=== PATIENT | female | born 1970 | race Caucasian/White ===

== ENCOUNTER 2020-10-24 01:00 | Day surgery (SDC) | payer BC, OTHER, SELFPAY ==
[2020-10-23 13:39] VITALS: BMI 36.6
[2020-10-24] VITALS (9 sets, daily range): BP systolic 110–131; BP diastolic 74–84; PULSE 77–91; RESP 12–16; TEMP 36.1–37; O2SAT 94–100
--- NOTE | ~2020-10-24 | XR_ITS ---
EXAMINATION: XR fluoroscopy no charge EXAM DATE: 10/24/2020 10:43 INDICATION: Left-sided stone extraction. TECHNIQUE: Fluoroscopy used during XR fluoroscopy no charge performed by Dr. El Levin MD. The DAP for this procedure was 833 radcm2 Cine run(s) available for review. FINDINGS: There are 2 sample case porter images available, difficult to identify the ureteral stone on these 2 im ages. Correlate with procedure note. IMPRESSION: Fluoroscopy used during left stone extraction. Reviewed, dictated and finalized at location A. [employer]
--- NOTE | 2020-10-24 09:19 | ECG_ITS ---
Measurements Intervals [place] Rate: 86 P: 62 MA: 161 QRS: 34 QRSD: 83 T: 50 QT: 365 QTc: 438 Interpretive Statements SINUS RHYTHM NORMAL ECG Electronically Signed On 10-24-2020 10:04:52 [employer] by Dariel Smith D.O.
--- NOTE | 2020-10-24 09:21 | WPDANESEPPF ---
Anes - Initial Pre Proc Eval Procedure: Operation Date: 10/24/20 11:30 Proposed Procedures p Cystoscopy, Left Ureteroscopy,Possible Left Retrograde Pyelogram, Left Stone Extraction, Possible Left Stent Placement, - El Levin MD s Possible Holmium Laser Procedure - El Levin MD Date/Time: 10/24/20 09:21 Surgeon: El Levin MD Pre Op Diagnosis: Left Ureteral Stones Patient Data Age: 50 Gender: F Height: 1.65 m Weight: 103.3 kg Allergies Allergy/AdvReac Type Severity Reaction Status Date / Time latex Allergy Severe Anaphylaxis Verified 10/24/20 09:10 morphine Allergy Severe Anaphylaxis Verified 10/24/20 09:10 hydromorphone [From Dilaudid] AdvReac Mild Itching Verified 10/24/20 09:10 metformin AdvReac Mild Diarrhea Verified 10/24/20 09:10 mirabegron AdvReac Mild Rash Verified 10/24/20 09:10 nabumetone AdvReac Mild Swelling Verified 10/24/20 09:10 naproxen [From Naprosyn] AdvReac Mild Itching Verified 10/24/20 09:10 sertraline [From Zoloft] AdvReac Mild Rash Verified 10/24/20 09:10 venlafaxine AdvReac Mild Anaphylaxis Verified 10/24/20 09:10 Home Medications Medication Instructions Recorded Confirmed Type atorvastatin 80 mg HS 10/23/20 10/24/20 History cyclobenzaprine 10 mg PRN PRN 10/23/20 10/24/20 History gabapentin 300 mg PO BID 10/23/20 10/24/20 History glimepiride 4 mg BID 10/23/20 10/24/20 History hydrocodone-acetaminophen 1 tablet PRN PRN 10/23/20 10/24/20 History ketorolac 10 mg PRN PRN 10/23/20 10/24/20 History liraglutide [Victoza 2-Abilio] 18 mg SUBCUT DAILY 10/23/20 10/24/20 History lisinopril 5 mg PO DAILY 10/23/20 10/24/20 History omeprazole 20 mg QAM 10/23/20 10/24/20 History ondansetron HCl 4 mg PRN PRN 10/23/20 10/24/20 History tamsulosin 0.4 mg PO HS 10/23/20 10/24/20 History Patient hx anesthesia problems: none Family hx anesthesia problems: none PMFSH Past Medical History Medical History (Updated 10/24/20 @ 09:35 by Dominick Thomas DO) Chronic, continuous use of opioids norco 10/325 x 3/day Diabetes type 2, controlled Fibromyalgia Hyperlipidemia Hypertension Surgical History Surgical History (Updated 10/24/20 @ 09:23 by Dominick Thomas DO) History of History of cholecystectomy History of hysterectomy History of left knee replacement Social History Social History Smoking packs per day: 1 Smoking cigarettes per day: 20.0 Years smoked: 35 Smoking pack-years: 35.00 Smoking status: Current every day smoker Tobacco type: cigarettes Second hand tobacco smoke exposure: Yes Alcohol intake: never Substance use: never Substance use type: does not use Living arrangements: with family Spiritual care concerns: No Anes - Eval Final PreProcedure Day of Procedure 10/24/20 09:21 Patient weight: obese Heart: regular rate and rhythm Lungs: clear to auscultation and normal air movement Airway: Mallampati scale class II Neurological: alert and oriented Last oral intake: >/= 8 hours ASA classification: III Emergent: no Anesthetic plan: proceed Anesthesia type and monitoring: general LMA and standard monitoring Informed Consent: The patient's anesthetic plan and its attendant risks and benefits were discussed with the patient/family/POA. Questions were solicited and answers provided to the satisfaction of the patient/family/POA.
[2020-10-24 09:37] LABS: Glucose Point of Care 320 (65-105)
[2020-10-24] MEDS: LACTATED RINGERS 1,000 ML 30 ML IV CONT ×2 (09:50→11:12)
[2020-10-24] MEDS: FAMOTIDINE 20 MG/2 ML VIAL IV PUSH (10:02)
[2020-10-24] MEDS: INSULIN HUMAN REGULAR (*BKC) 100 UNITS/ML IV PUSH (10:02)
--- NOTE | 2020-10-24 10:02 | WPDHPUPDATE1 ---
History and Physical Update Update Date/Time: 10/24/20 10:02 History and Physical has been reviewed, including an updated exam of the patient. There are NO changes in the patient's condition. Risks, benefits, and alternatives have been discussed and questions answered. Patient agrees to proceed with procedure.
[2020-10-24] MEDS: SCOPOLAMINE 1.5 MG PATCH TRANSDERM (10:03)
[2020-10-24] MEDS: ceFAZolin 2 GM/D5W 50 ML 2 GM/50 ML BAG IVPB (10:07)
[2020-10-24 10:08] LABS: Anion Gap 9 mmol/L (8-16); Blood Urea Nitrogen 18 mg/dL (7-17); Calcium 9.7 mg/dL (8.4-10.2); Carbon Dioxide 27 mmol/L (22-30); Chloride 100 mmol/L (98-107); Estimated CRCL calculation 134 ml/min; Estimated Glomerular Filt Rate > 60; Glucose 319 mg/dL (65-105); Potassium 4.7 mmol/L (3.4-5.0); Sodium 136 mmol/L (137-145)
[2020-10-24] MEDS: LIDOCAINE HCL 2% GEL UROJET 10 ML PKG MUCOUS MEM (10:13)
--- NOTE | 2020-10-24 10:43 | PM.PROC ---
Procedure Note - Detailed Date of procedure: 10/24/20 Pre-op diagnosis: Left Ureteral Stones Post-op diagnosis: same Procedure performed: Cystoscopy, left ureteroscopy with stone extraction Description of procedure: Patient is brought to the operative suite where she was prepped and draped in routine sterile fashion while in a dorsal lithotomy position. Cystoscopy was undertaken with a 19 F rigid cystoscope. We opted not to perform a retrograde pyelogram because of the possible latex rubber day on contrast bilateral and the patient's allergy to latex. 0.035 in glidewire was advanced left renal pelvis under fluoroscopy. Distal ureters dilated with an 8 F dilator. Ureteroscopy was undertaken 1st with a semi rigid ureteral scope. The mid ureteral stone was irrigated back into the renal pelvis. I exchanged the semi-rigid scope for a 7.5 F flexible ureteral scope be the largest of spoke multiple kidney stones was grasped and extracted. In the course of its removed from the bladder the stone was squeezed between the basket wires in could not be found thereafter. It had been extracted from her bladder however. During the course of ureteroscopy several smaller stones were also irrigated from the kidney. She has no significant residual stone pieces remaining in the left kidney. Description wires were removed and the patient was taken to recovery room in good condition. Anesthesia: GLMA Surgeon: El Levin MD Estimated blood loss (mL): 0 Drains: No Packing: No Pathology: none sent Complications: No immediate complications Condition: stable Disposition: PACU
[2020-10-24 10:50] LABS: Glucose Point of Care 208 (65-105)
[2020-10-24] MEDS: oxyCODONE HCL (*CRX) 5 MG TAB IR PO (12:33)
== END 2020-10-24 13:25 | disposition home or self-care (01) ==
PROVIDERS: Anesthesiology; PCP Nurse Practitioner Psychiatric/Mental Health; Visit Provider Urology
PROC: (CPT 52352; principal; 2020-10-24 11:30)
DX: N20.1 Calculus of ureter (principal); E11.9 Type 2 diabetes mellitus without complications; M79.7 Fibromyalgia; E78.5 Hyperlipidemia, unspecified; I10 Essential (primary) hypertension; F17.210 Nicotine dependence, cigarettes, uncomplicated; E66.9 Obesity, unspecified; Z68.37 Body mass index [BMI] 37.0-37.9, adult
CPT/HCPCS: 52352; 36415; 80048; 93005; A9270; C1769; J0690; J1100; J1200; J1815; J2001; J2250; J2405; J2704; J3010; J7120

== ENCOUNTER 2022-10-19 17:09 | Emergency (ER) | payer OTHER, SELFPAY ==
--- NOTE | 2022-10-19 17:22 | ED.URI ---
HPI - URI/Sore Throat General Chief Complaint: Upper Respiratory Infection Stated Complaint: sorethroat Time Seen by Provider: 10/19/22 17:22 Source: patient Mode of arrival: ambulatory Limitations: no limitations History of Present Illness HPI Narrative: Tawanna is a 52-year-old female patient presenting to the clinic today with complaints of a sore throat, cough, and congestion times 3-4 days. She reports no fever or chills. Her grand baby has tested positive for RSV. MD elicited complaint: sore throat and nasal congestion Related Data Home Medications Medication Instructions Recorded Confirmed atorvastatin 40 mg tablet 80 mg HS 10/23/20 10/19/22 cyclobenzaprine 10 mg tablet 10 mg PRN PRN Pain 10/23/20 10/19/22 gabapentin 300 mg tablet 300 mg PO TID 10/23/20 10/19/22 glimepiride 4 mg tablet 4 mg BID 10/23/20 10/19/22 hydrocodone 5 mg-acetaminophen 325 1 tablet PRN PRN Pain 10/23/20 10/19/22 mg tablet liraglutide 0.6 mg/0.1 mL (18 mg/3 18 mg subcut DAILY 10/23/20 10/19/22 mL) subcutaneous pen injector (Q-Senseiza 2-Abilio) lisinopril 5 mg tablet 5 mg PO DAILY 10/23/20 10/19/22 omeprazole 20 mg capsule,delayed 20 mg QAM 10/23/20 10/19/22 release ondansetron HCl 4 mg tablet 4 mg PRN PRN Nausea 10/23/20 10/19/22 tamsulosin 0.4 mg capsule 0.4 mg PO HS 10/23/20 10/19/22 empagliflozin 25 mg tablet 25 mg DAILY 10/19/22 10/19/22 (Jardiance) metformin 500 mg tablet,extended 500 mg PO BID 10/19/22 10/19/22 release 24 hr Allergies Allergy/AdvReac Type Severity Reaction Status Date / Time latex Allergy Severe Anaphylaxis Verified 10/19/22 17:41 morphine Allergy Severe Anaphylaxis Verified 10/19/22 17:41 venlafaxine Allergy Severe Anaphylaxis Verified 10/19/22 17:41 hydromorphone [From Dilaudid] AdvReac Mild Itching Verified 10/19/22 17:41 metformin AdvReac Mild Diarrhea Verified 10/19/22 17:41 mirabegron AdvReac Mild Rash Verified 10/19/22 17:41 nabumetone AdvReac Mild Swelling Verified 10/19/22 17:41 naproxen [From Naprosyn] AdvReac Mild Itching Verified 10/19/22 17:41 sertraline [From Zoloft] AdvReac Mild Rash Verified 10/19/22 17:41 Review of Systems Review of Systems: Pertinent positives per HPI. Patient denies any fever, chills, rash, headache, visual changes, dizziness, shortness of breath, chest pain, palpitations, nausea, vomiting, diarrhea, constipation, abdominal pain, or any urinary issues. [facility] Past Medical History Medical History Chronic, continuous use of opioids norco 10/325 x 3/day Diabetes type 2, controlled Fibromyalgia Hyperlipidemia Hypertension Surgical History Surgical History History of History of cholecystectomy History of hysterectomy History of left knee replacement Social History Social History Smoking packs per day: 1 Smoking cigarettes per day: 20.0 Years smoked: 35 Smoking pack-years: 35.00 Smoking status: Current every day smoker Tobacco type: cigarettes Second hand tobacco smoke exposure: Yes Alcohol intake: never Substance use: never Substance use type: does not use Spiritual care concerns: No Comments At the time of my signature, I reviewed and agree with the nursing past medical, surgical, social, and family history. There is no relevant family history pertinent to the patient complaint. Exam Narrative: General: Well-developed, well nourished, in no apparent distress Head: Normocephalic, atraumatic Eyes: Pupils equally round and reactive to light bilaterally, EOM intact, sclera and conjunctive clear, no discharge, lids normal Ears: TMs intact and clear, ear canals clear, no drainage, grossly hearing normal. Nose: Nares patent, clear nasal discharge, no inflammation, no sinus tenderness. Mouth: Oral pharynx without lesions or masses, good dentition
[2022-10-19 17:37] VITALS: BP 102/78; PULSE 122; RESP 20; TEMP 36.4; O2SAT 97
== END 2022-10-19 18:17 | disposition home or self-care (01) ==
LOC: EXPTROY 17:26
PROVIDERS: Emergency Provider Nurse Practitioner Family; PCP Nurse Practitioner Family
DX: J06.9 Acute upper respiratory infection, unspecified (principal); R05.9 Cough, unspecified; J02.9 Acute pharyngitis, unspecified; F17.210 Nicotine dependence, cigarettes, uncomplicated; E11.9 Type 2 diabetes mellitus without complications; Z79.84 Long term (current) use of oral hypoglycemic drugs; M79.7 Fibromyalgia; E78.5 Hyperlipidemia, unspecified; I10 Essential (primary) hypertension
CPT/HCPCS: 87081; 87804; 87880; 99213; G0463